=== PATIENT | female | born 2000 | race Caucasian/White ===

== ENCOUNTER 2018-05-28 14:57 | Emergency (ER) | payer BC | END 2018-05-28 16:58 | disposition home or self-care (01) | LOC: ERS 14:57 | DX: J45.901 Unspecified asthma with (acute) exacerbation (principal) | CPT/HCPCS: 94640; J7620 ==

== ENCOUNTER 2018-07-23 12:51 | Emergency (ER) | payer BC ==
[2018-07-23] MEDS ORDERED: Ibuprofen 200 MG TAB ONE (13:58)
--- NOTE | 2018-07-23 14:49 | RAD ---
XR Foot Lt 3 View STANDARD HISTORY: Injury, left foot pain FINDINGS: No fracture or dislocation is identified.
== END 2018-07-23 15:20 | disposition home or self-care (01) ==
LOC: ERS 12:51
DX: S93.402A Sprain of unspecified ligament of left ankle, initial encounter (principal); S93.602A Unspecified sprain of left foot, initial encounter; W19.XXXA Unspecified fall, initial encounter

== ENCOUNTER 2018-08-24 04:34 | Emergency (ER) | payer BC ==
[2018-08-24] MEDS ORDERED: Fluorescein Opthalmic Strip ONE (07:47)
[2018-08-24] MEDS ORDERED: predniSONE 20 MG TAB ONE (07:47)
[2018-08-24] MEDS ORDERED: Proparacaine 0.5% Opth 15 ML BOT ONE (07:51)
== END 2018-08-24 08:30 | disposition home or self-care (01) ==
LOC: ERS 04:34
DX: T78.40XA Allergy, unspecified, initial encounter (principal); J45.909 Unspecified asthma, uncomplicated; Z79.899 Other long term (current) drug therapy
CPT/HCPCS: 99283; J7512